=== PATIENT | male | born 1990 ===

== ENCOUNTER 2020-01-29 16:46 | Emergency (ER) | payer MEDICAID ==
[~2020-01-29] VITALS: Ht 190.5 cm; Wt 118.3 kg
--- NOTE | 2020-01-29 17:29 | NUR ---
Pt arrives to ed with new onset of sob. Pt reports that he has had sob for 24 hours. Pt reports that he is concerned because he is working hard to breathe and needs to take deep breaths when having a conversation. Pt reports his job is stressful and he does feel ancious but no more than usual. Pt connected to all monitors and call light in reach.
[2020-01-29] MEDS ORDERED: ALBUTEROL/IPRATROPIUM 2.5MG/0.5MG, 3 ML NPPB ONE (17:30)
[2020-01-29 17:40] LABS: BASOPHILS # (AUTO) 0.07 x10^3/uL (0-0.1); BASOPHILS % (AUTO) 1 % (0-1); EOSINOPHILS # (AUTO) 0.13 x10^3/uL (0-0.4); EOSINOPHILS % (AUTO) 2 % (1-7); LYMPHOCYTES % (AUTO) 32 % (22-44); MD NO; MEAN CORPUSCULAR HEMOGLOBIN 29.4 pg (27.5-34.5); MEAN CORPUSCULAR HGB CONC 33.2 g/dL (33.2-36.2); MEAN CORPUSCULAR VOLUME 88.5 fL (81-97); MEAN PLATELET VOLUME 8.9 fL (7.4-10.4); MONOCYTES # (AUTO) 0.85 x10^3/uL (0.2-0.8); MONOCYTES % (AUTO) 11 % (2-9); NEUTROPHILS # (AUTO) 4.32 x10^3/uL (1.8-6.8); NEUTROPHILS % (AUTO) 55 % (42-75); PLATELET COUNT 245 x10^3/uL (130-400); RED BLOOD COUNT 4.72 x10^6/uL (4.38-5.82); RED CELL DISTRIBUTION WIDTH 13.3 % (9.4-14.8)
[2020-01-29 17:51] LABS: ANION GAP 9 mmol/L (5-15); CALCIUM 8.8 mg/dL (8.5-10.1); CHLORIDE 113 mmol/L (98-107); CREATININE 1.23 mg/dL (0.7-1.3)
[2020-01-29 17:56] LABS: ALANINE AMINOTRANSFERASE 35 U/L (12-78); ALKALINE PHOSPHATASE 69 U/L (45-117); BILIRUBIN,TOTAL 0.6 mg/dL (0.2-1.0); TOTAL PROTEIN 7.5 g/dL (6.4-8.2); TROPONIN I < 0.015 ng/mL (0.000-0.045)
[2020-01-29] MEDS ORDERED: ALBUTEROL/IPRATROPIUM 2.5MG/0.5MG, 3 ML ONE (17:56)
--- NOTE | 2020-01-29 18:02 | NUR ---
Pt medicated per emar and precautions followed for nebulized resp treatment.
--- NOTE | 2020-01-29 18:52 | NUR ---
PT AT CT.
--- NOTE | 2020-01-29 18:55 | NUR ---
Pt back from CT.
[2020-01-29] MEDS ORDERED: OMNIPAQUE 350 MG/ML, 75ML BOTTLE ONE (19:03)
[2020-01-29 19:13] VITALS: BP 109/76
--- NOTE | 2020-01-29 19:13 | NUR ---
Break rn: Pt resting comfortably on gurney. RICARDON. No immediate needs from pt. WCTM.
--- NOTE | 2020-01-29 19:19 | NUR ---
Break rn:All results back. Pt up for recheck.
--- NOTE | 2020-01-29 20:25 | NUR ---
Patient/Caregiver given discharge instructions and they have confirmed that they understand the instructions. Patient ambulatory with steady gait.
== END 2020-01-29 20:28 ==
LOC: ED 20:22
DX: J45.31 Mild persistent asthma with (acute) exacerbation (principal); Z20.828 Contact with and (suspected) exposure to other viral communicable diseases; R07.81 Pleurodynia; F17.200 Nicotine dependence, unspecified, uncomplicated
CPT/HCPCS: 36415; 71045; 71275; 80053; 83880; 84484; 85025; 85379; 87635; 93005; 94640; 99285; J7512; Q9967

== ENCOUNTER 2020-05-29 10:40 | Emergency (ER) | payer MEDICAID ==
[~2020-05-29] VITALS: Ht 190.5 cm; Wt 118.0 kg
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
[2020-05-29 10:45] VITALS: BP 132/83
[2020-05-29] MEDS ORDERED: LORazepam 2 MG/ML, 1ML IM ONE (11:30)
[2020-05-29] MEDS ORDERED: ZIPRASIDONE 20 MG INJ IM ONE (11:30)
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
[2020-05-29 11:49] LABS: BASOPHILS % (AUTO) 1 % (0-1); EOSINOPHILS % (AUTO) 0 % (1-7); LYMPHOCYTES % (AUTO) 12 % (22-44); MEAN CORPUSCULAR HEMOGLOBIN 29.5 pg (27.5-34.5); MEAN CORPUSCULAR HGB CONC 33.2 g/dL (33.2-36.2); MEAN PLATELET VOLUME 8.5 fL (7.4-10.4); MONOCYTES % (AUTO) 8 % (2-9); NEUTROPHILS % (AUTO) 79 % (42-75); PLATELET COUNT 263 x10^3/uL (130-400); RED BLOOD COUNT 5.01 x10^6/uL (4.38-5.82); RED CELL DISTRIBUTION WIDTH 13.5 % (9.4-14.8)
[2020-05-29 11:54] LABS: MD NO
[2020-05-29] MEDS ORDERED: PLEASE ENTER HEIGHT AND WEIGHT MC SCH ×3 (12:00→12:30)
[2020-05-29 12:01] LABS: ALANINE AMINOTRANSFERASE 42 U/L (12-78); ALBUMIN 4.3 g/dL (3.4-5.0); ANION GAP 5 mmol/L (5-15); CHLORIDE 113 mmol/L (98-107); SALICYLATE LEVEL 3.4 mg/dL (2.8-20.0)
[2020-05-29 12:05] LABS: ALKALINE PHOSPHATASE 65 U/L (45-117); BILIRUBIN,TOTAL 0.5 mg/dL (0.2-1.0); CREATININE 1.14 mg/dL (0.7-1.3)
--- NOTE | 2020-05-29 13:21 | NUR ---
CAROL SPICER IN TO SPEAK WITH PT. CAMILO AT [facility].
--- NOTE | 2020-05-29 13:46 | NUR ---
DC INSTRUCTIONS AND RESOURCE LIST PROVIDED TO PT. SO HERE TO TRANSPORT HOME
== END 2020-05-29 13:55 | disposition home or self-care (01) ==
LOC: ED 13:47
DX: F32.9 Major depressive disorder, single episode, unspecified (principal); J45.909 Unspecified asthma, uncomplicated; F17.290 Nicotine dependence, other tobacco product, uncomplicated
CPT/HCPCS: 36415; 80053; 80307; 85025; 99283